=== PATIENT | male | born 1980 | race African-American/Black ===

== ENCOUNTER 2016-11-10 14:22 | Emergency (ER) | payer BC ==
[~2016-11-10] VITALS: Ht 170.2 cm; Wt 87.3 kg
[~2016-11-10 14:22] MED LIST: ALLEGRA-D 24HR1 T24 PO; COREG 3.123.125 MG/T; COREG 6.256.25 MG/TA PO; COZAAR 25MG25 MG/TAB; COZAAR 25MG25 MG/TAB PO; NORCO 325 MG-51 TAB PO
[2016-11-10 14:28] VITALS: TEMP 98.8
[2016-11-10] MEDS ORDERED: COZAAR100 MG PO (14:34)
[2016-11-10] MEDS ORDERED: ELIQUIS 5MG PO (14:34)
[2016-11-10] MEDS ORDERED: COREG 25MG25 MG/TAB PO (14:35)
[2016-11-10 14:52] LABS: BASO % 0.3 % (0.0-2.0); EOS # 0.1 (0.0-0.7); EOS % 1.3 % (0-4.0); GRAN # 5.6 (1.4-6.5); GRAN % 61.3 % (42.2-75.2); HEMATOCRIT 46.4 % (42.0-52.0); HEMOGLOBIN 15.4 g/dl (13.5-18.0); LYMPH # 2.6 (1.2-3.4); LYMPH % 28.1 % (20.0-51.0); MEAN CELL VOLUME 95 fl (80.0-100.0); MEAN CORPUSCULAR HEMOGLOBIN 32 pg (27.0-31.0); MEAN CORPUSCULAR HGB CONC 33 g/dl (33.0-37.0); MEAN PLATELET VOLUME 10.3 fl (7.4-10.4); MONO # 0.8 (0.1-0.6); MONO % 8.7 % (1.7-9.3); PLATELET COUNT 173 K/mm3 (130-400); RED BLOOD COUNT 4.88 M/mm3 (4.20-5.60); REDCELL DISTRIBUTION WIDTH-CV 12.7 % (11.5-14.5); WHITE BLOOD COUNT 9.1 K/mm3 (4.8-10.8)
[2016-11-10 15:02] LABS: INR 1.4 (0.8-3.0); PROTHROMBIN TIME 15.3 SECONDS (9.7-12.8)
[2016-11-10 15:04] LABS: PARTIAL THROMBOPLASTIN TIME 37.4 SECONDS (26.0-37.0)
[2016-11-10] MEDS ORDERED: PROTONIX 40MG T40 MG PO (15:17)
[2016-11-10] MEDS ORDERED: TAMBOCOR50 MG PO (15:18)
[2016-11-10] MEDS ORDERED: ULTRAM 50MG TAB50 MG PO (15:19)
[2016-11-10] MEDS ORDERED: COLCRYS0.6 MG PO (15:43)
[2016-11-10] MEDS ORDERED: MOTRIN 800800 MG/TAB PO ×2 (15:43→17:35)
[2016-11-10 15:52] VITALS: BP 135/84
[2016-11-10 16:09] LABS: ADJUSTED CALCIUM 8.8 mg/dL (8.4-10.2); ALBUMIN 4.1 gm/dL (3.5-5.0); CALCIUM 8.9 mg/dL (8.4-10.2); CREATININE, serum 1.12 mg/dL (0.66-1.25); POTASSIUM 3.5 mmol/L (3.4-5.0); TOTAL PROTEIN 7.2 gm/dL (6.4-8.2)
[2016-11-10 16:43] LABS: TROPONIN-I 2.36 ng/mL (0.000-0.034)
[2016-11-10 17:52] VITALS: PULSE 93
== END 2016-11-10 17:52 | disposition home or self-care (01) ==
LOC: COL.ER 14:22
PROVIDERS: Emergency Medicine
DX: I31.9 Disease of pericardium, unspecified (principal); I48.91 Unspecified atrial fibrillation; I10 Essential (primary) hypertension; F17.210 Nicotine dependence, cigarettes, uncomplicated
CPT/HCPCS: J2270

== ENCOUNTER → 2018-12-16 | Outpatient (CLI) | payer BC ==
[~2018-12-16] MED LIST changes: +COLCRYS0.6 MG PO; +COREG 25MG25 MG/TAB PO; +COZAAR100 MG PO; +ELIQUIS 5MG PO; +MOTRIN 800800 MG/TAB PO; +PROTONIX 40MG T40 MG PO; +TAMBOCOR50 MG PO; +ULTRAM 50MG TAB50 MG PO
== END ==
LOC: COL.RAD 09:59
DX: R20.2 Paresthesia of skin (principal); R20.0 Anesthesia of skin; R20.9 Unspecified disturbances of skin sensation; R10.9 Unspecified abdominal pain; R29.898 Other symptoms and signs involving the musculoskeletal system; R20.8 Other disturbances of skin sensation